=== PATIENT | male | born 1935 | race Caucasian/White ===

== ENCOUNTER → 2018-04-19 | Outpatient (CLI) | payer MEDICARE, OTHER ==
[~2018-04-19] MED LIST: AMOX-559 PO; FLUT16SP19 NS; FOLI0.4T56 PO; GLUC100026 PO; IBUP-1687 PO; LEVO-3 PO; LEVO50TA86 PO; LIFI1DRO ASDIRECTED; MULT-772 PO; OMEG500C7 PO; SAW80CAP4 PO; TES5T TP; TRAV2.5D4 OU; [UNRECOGNIZED DRUG - OTHER] PO
--- NOTE | 2018-04-19 10:30 | EKG ---
FACILITY: [facility] PATIENT NAME: SOTERO JASSO : [id number] MR: [id number] V: [id number] EXAM DATE: ORDERING PHYSICIAN: MIGUEL CASTORENA TECHNOLOGIST: KENDRA Test Reason : CHEST TIGHTNESS Blood Pressure : / mmHG Vent. Rate : 051 BPM Atrial Rate : 051 BPM P-R Int : 182 ms QRS Dur : 086 ms QT Int : 468 ms P-R-T Axes : 017 045 049 degrees QTc Int : 431 ms Sinus bradycardia Otherwise normal ECG When compared with ECG of 19-APR-2014 10:03, No significant change was found Referred By: Confirmed By:
== END ==
LOC: RAD 09:32
PROVIDERS: ATTEND Internal Medicine
DX: R00.1 Bradycardia, unspecified (principal)

== ENCOUNTER → 2018-04-20 | Outpatient (CLI) | payer MEDICARE, OTHER ==
[2018-04-20 08:37] LABS: PLATELET COUNT, AUTOMATED 210 K/uL (150-450)
== END ==
LOC: LAB 08:00
PROVIDERS: ATTEND Internal Medicine
DX: Z12.5 Encounter for screening for malignant neoplasm of prostate (principal); R79.89 Other specified abnormal findings of blood chemistry; R07.89 Other chest pain; E03.9 Hypothyroidism, unspecified
CPT/HCPCS: 36415; 81001; 84402; 84403; 84443; 85025; G0103; 82040; 82247; 82310; 82374; 82435; 82465; 82565; 82947; 83718; 84075; 84132; 84153; 84155; 84295; 84450; 84460; 84478; 84520

== ENCOUNTER → 2018-05-21 | Outpatient (CLI) | payer MEDICARE, OTHER ==
[~2018-05-21] MED LIST changes: +ESCI10TA8 PO
--- NOTE | 2018-05-21 12:23 | RADIOLOGY IMAGING REPORT ---
FACILITY: [facility] [place] PATIENT NAME: James La : 1935 MR: [id number] V: [id number] EXAM DATE: ORDERING PHYSICIAN: LEONARDO LARSEN TECHNOLOGIST: Location: [facility] Patient: James La : 1935 Visit/Account:[id number] Date of Sevice: 05/21/2018 BAKERS CYST ASPIRATION History: 83-year-old male with right knee pain. 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 Procedure: There has been satisfactory grayscale ultrasonic evaluation of the popliteal fossa. Comparison study: MRI scan from May 05, 2018. Findings: There has been satisfactory ultrasonic evaluation of the popliteal fossa. Imaging shows no findings of a Kim's cyst. The ganglionic cyst is not identified and is too small to access with u ltrasound guidance. No procedure was performed. IMPRESSION: 1. Ultrasound of the right popliteal fossa showing no evidence of a Ikm's cyst. 2. The previously described ganglionic cyst at the myotendinous junction of the popliteus tendon can not be seen or access for aspiration. Results were called to the office of LEONARDO LARSEN M.D. at 05/21/2018 12:18 PM. Report Dictated By: Hugo Lopez MD at 05/21/2018 12:16 PM Report E-Signed By: Hugo Lopez MD at 05/21/2018 12:19 PM WSN:[email or web address]
== END ==
LOC: US 02:38
PROVIDERS: ATTEND Orthopaedic Surgery
DX: M25.561 Pain in right knee (principal)
CPT/HCPCS: 76999

== ENCOUNTER → 2018-07-01 | Outpatient (CLI) | payer MEDICARE, OTHER ==
[2018-07-01 14:45] LABS: PLATELET COUNT, AUTOMATED 248 K/uL (150-450)
--- NOTE | 2018-07-01 15:04 | EKG ---
FACILITY: PATIENT NAME: SOTERO JASSO : [id number] MR: [id number] V: [id number] EXAM DATE: ORDERING PHYSICIAN: MIGUEL CASTORENA TECHNOLOGIST: MICHAEL Rojas Reason : PRE-OP Blood Pressure : / mmHG Vent. Rate : 057 BPM Atrial Rate : 057 BPM P-R Int : 194 ms QRS Dur : 078 ms QT Int : 482 ms P-R-T Axes : 071 060 063 degrees QTc Int : 469 ms Sinus bradycardia Otherwise normal ECG No previous ECGs available Confirmed by MIGUEL CASTORENA ([id number]) on 07/01/2018 4:56:13 PM Referred By: RAFAEL Confirmed By:MIGUEL CASTORENA
== END ==
LOC: RESP 13:27
PROVIDERS: ATTEND Internal Medicine
DX: E03.9 Hypothyroidism, unspecified (principal); R79.89 Other specified abnormal findings of blood chemistry; Z01.818 Encounter for other preprocedural examination
CPT/HCPCS: 36415; 81001; 82040; 82247; 82310; 82374; 82435; 82565; 82947; 84075; 84132; 84155; 84295; 84450; 84460; 84520; 85025

== ENCOUNTER → 2018-08-30 | Outpatient (CLI) | payer MEDICARE, OTHER ==
[2018-08-30 08:16] LABS: PLATELET COUNT, AUTOMATED 230 K/uL (150-450)
== END ==
LOC: LAB 07:52
PROVIDERS: ATTEND Internal Medicine
DX: F41.9 Anxiety disorder, unspecified (principal); E29.1 Testicular hypofunction
CPT/HCPCS: 36415; 81001; 82040; 82247; 82310; 82374; 82435; 82565; 82947; 84075; 84132; 84155; 84295; 84402; 84403; 84450; 84460; 84520; 85025

== ENCOUNTER → 2019-04-20 | Outpatient (CLI) | payer MEDICARE, OTHER ==
--- NOTE | 2019-04-20 15:15 | EKG ---
FACILITY: [facility] PATIENT NAME: SOTERO JASSO : [id number] MR: [id number] V: [id number] EXAM DATE: ORDERING PHYSICIAN: MIGUEL CASTORENA TECHNOLOGIST: SAI Test Reason : SOB Blood Pressure : / mmHG Vent. Rate : 075 BPM Atrial Rate : 075 BPM P-R Int : 208 ms QRS Dur : 078 ms QT Int : 432 ms P-R-T Axes : 056 043 043 degrees QTc Int : 482 ms Normal sinus rhythm Prolonged QT Abnormal ECG When compared with ECG of 01-JUL-2018 12:54, No significant change was found Confirmed by Theodore Fournier ([id number]) on 04/21/2019 1:09:01 AM Referred By: KELL Confirmed By:Theodore Springer
--- NOTE | 2019-04-20 15:32 | RADIOLOGY IMAGING REPORT ---
FACILITY: [facility] - [place] PATIENT NAME: James La : 1935 MR: [id number] V: [id number] EXAM DATE: ORDERING PHYSICIAN: MIGUEL CASTOREAN TECHNOLOGIST: Location: [facility] Patient: James La : 1935 Visit/Account:[id number] Date of Sevice: 04/20/2019 2 VIEWS CHEST INDICATION: sob COMPARISON: None available FINDINGS: Heart size within normal limits. Moderate calcification within the aortic knob. There is no focal infiltrate or lobar consolidation. There is no pneumothorax or pleural effusion. IMPRESSION: 1. No acute cardiopulmonary process. Report Dictated By: Aden Donnelly MD at 04/20/2019 3:26 PM Report E-Signed By: Aden Donnelly MD at 04/20/2019 3:27 PM WSN:[email or web address]
[2019-04-20 15:39] LABS: PLATELET COUNT, AUTOMATED 246 K/uL (150-450)
== END ==
LOC: LAB 14:30
PROVIDERS: ATTEND Internal Medicine
DX: R42 Dizziness and giddiness (principal); F41.9 Anxiety disorder, unspecified; R06.00 Dyspnea, unspecified; I95.9 Hypotension, unspecified; E03.9 Hypothyroidism, unspecified; R79.89 Other specified abnormal findings of blood chemistry
CPT/HCPCS: 36415; 71046; 83735; 83880; 84402; 84403; 84439; 84443; 85025; G0103; 82040; 82247; 82310; 82374; 82435; 82465; 82565; 82947; 83718; 84075; 84132; 84153; 84155; 84295; 84450; 84460; 84478; 84520

== ENCOUNTER → 2019-04-27 | Outpatient (CLI) | payer MEDICARE, OTHER ==
--- NOTE | 2019-04-29 17:12 | RT HOLTER TEST ---
FACILITY: [facility] [place] PATIENT NAME: SOTERO JASSO : [id number] MR: [id number] V: [id number] EXAM DATE: ORDERING PHYSICIAN: MIGUEL CASTORENA TECHNOLOGIST: ARIANA Hook-up date: 2019-04-27 15:37:00 Duration: 23:54:00 Test Indications: Dizzy, Hypotension Medications: N/A 143149 QRS complexes 7314 Ventricular ectopics which represent 6 % of total QRS comp. 2147 Supraventricular ectopics which represent 1 % of total QRS comp. * Paced QRS complexes which represent % of total QRS comp. VENTRICULAR ECTOPY 7116 Isolated 734 Bigeminal Cycles 99 Couplets 0 Runs 0 Beats in Runs * Beats LONGEST at * BPM at :: -- * Beats FASTEST at * BPM at :: -- SUPRAVENTRICULAR ECTOPY 1595 Isolated 136 Couplets 71 Runs 280 Beats in Runs 12 Beats LONGEST at 88 BPM at 02:37:07 2019-04-28 7 Beats FASTEST at 146 BPM at 07:11:50 2019-04-28 HEART RATES 43 MIN at 05:40:11 2019-04-28 78 AVG 156 MAX at 16:07:47 2019-04-27 LONGEST RR 2.528 secs at 06:13:25 2019-04-28 S-T LEVELS Channel 1 -12.800 mm MIN at 15:37:00 2019-04-27 -12.800 mm MAX at 15:37:00 2019-04-27 Channel 2 -12.800 mm MIN at 15:37:00 2019-04-2712.800 mm MAX at 15:37:00 2019-04-27 Channel 3 -12.800 mm MIN at 15:37:00 2019-04-27 -12.800 mm MAX at 15:37:00 2019-04-27 Rhythm is sinus with first degree AV block with episodes of atrial flutter with variable block and in termittent atrial fibrillation as well. Frequent ventricular ectopy with many couplets. No runs were noted, but some ventricular bigeminy was recorded. Bradycardia with the atrial fibrillation/flutter as well as with the sinus rhythm were noted througho ut the recording also. Several pauses of more than two (2) seconds were recorded. Confirmed by MARLEY ALBRECHT ([id number]) on 04/29/2019 5:10:46 PM Referred By: Overread By: MARLEY ALBRECHT
== END ==
LOC: RESP 01:43
PROVIDERS: ATTEND Internal Medicine
DX: R42 Dizziness and giddiness (principal)
CPT/HCPCS: 93225; 93226

== ENCOUNTER → 2019-04-29 | Outpatient (CLI) | payer MEDICARE, OTHER | LOC: US 04:06 | PROVIDERS: ATTEND Internal Medicine | DX: R42 Dizziness and giddiness (principal); I95.0 Idiopathic hypotension; R06.00 Dyspnea, unspecified | CPT/HCPCS: 93226; 93306 ==

== ENCOUNTER → 2019-05-25 | Outpatient (CLI) | payer MEDICARE, OTHER ==
[~2019-05-25] MED LIST changes: +APIX5TAB PO; +ASPI-1471 PO
== END ==
LOC: LAB 14:34
PROVIDERS: ATTEND Internal Medicine
DX: I48.92 Unspecified atrial flutter (principal); N18.9 Chronic kidney disease, unspecified
CPT/HCPCS: 81001

== ENCOUNTER → 2019-06-10 | Outpatient (CLI) | payer MEDICARE, OTHER ==
[~2019-06-10] MED LIST changes: +DULO30CA35 PO; +DULO60CA56 PO
--- NOTE | 2019-06-10 10:29 | EKG ---
FACILITY: [facility] [place] PATIENT NAME: SOTERO JASSO : [id number] MR: [id number] V: [id number] EXAM DATE: ORDERING PHYSICIAN: MIGUEL CASTORENA TECHNOLOGIST: MICHAEL Rojas Reason : MEDICATION Blood Pressure : / mmHG Vent. Rate : 094 BPM Atrial Rate : 340 BPM P-R Int : 000 ms QRS Dur : 074 ms QT Int : 386 ms P-R-T Axes : 000 058 014 degrees QTc Int : 482 ms Atrial fibrillation with premature ventricular or aberrantly conducted complexes Nonspecific T wave abnormality Prolonged QT Abnormal ECG No previous ECGs available Confirmed by MIGUEL CASTORENA ([id number]) on 06/10/2019 11:57:26 AM Referred By: Confirmed By:MIGUEL CASTORENA
== END ==
LOC: LAB 08:57
PROVIDERS: ATTEND Internal Medicine
DX: R94.31 Abnormal electrocardiogram [ECG] [EKG] (principal)